=== PATIENT | female | born 1960 | race African-American/Black ===

== ENCOUNTER 2025-01-29 20:07 | Emergency (ER) | payer SELFPAY ==
[~2025-01-29] VITALS: Ht 162.6 cm; Wt 76.0 kg
[2025-01-29 20:11] VITALS: TEMP 37.2; O2SAT 100
[2025-01-29 20:55] VITALS: BP 120/60; PULSE 71; RESP 18
[2025-01-29] MEDS: KETOROLAC 15MG/ML VIAL IM ONE (20:55)
[2025-01-29 21:00] LABS: BASOPHILS % 0.4 % (0.0-2.0); EOSINOPHILS % 2.2 % (0.0-5.0); HEMATOCRIT. 32.7 % (36.0-48.0); HEMOGLOBIN. 10.9 g/dL (12.0-16.0); LYMPHOCYTES % 16.5 % (20.0-50.0); MEAN CORPUSCULAR HEMOGLOBIN 28.8 pg (28.0-32.0); MEAN CORPUSCULAR HGB CONC 33.5 g/dL (31.0-37.0); MEAN PLATELET VOLUME 8.5 fl (7.4-10.4); NEUTROPHILS % 73.9 % (40.0-76.0); PLATELET 237 x1000/uL (130-400); WHITE BLOOD COUNT 10.4 x1000/uL (4.5-11.0)
[2025-01-29 21:05] LABS: CHLORIDE 106 mEq/L (98-107); POTASSIUM 4.5 mEq/L (3.5-5.1); SODIUM 144 mEq/L (136-145)
[2025-01-29 21:06] LABS: CALCIUM 9.4 mg/dL (8.7-10.4); CARBON DIOXIDE 30 mEq/L (21-32)
[2025-01-29 21:11] LABS: GLUCOSE 111 mg/dL (70-105); UREA NITROGEN BLOOD 16 mg/dL (9-23)
[2025-01-29] MEDS ORDERED: SULF1TAB48 MT (23:58)
[2025-01-29] MEDS ORDERED: CEPH500C2 MT (23:58)
[2025-01-29] MEDS ORDERED: NAPR-1176 MT (23:59)
== END 2025-01-30 00:14 | disposition home or self-care (01) ==
LOC: ER 20:30
DX: L02.414 Cutaneous abscess of left upper limb (principal); Z79.1 Long term (current) use of non-steroidal anti-inflammatories (NSAID); Z79.899 Other long term (current) drug therapy
CPT/HCPCS: 99283; 80048; 85025; 36415; 96372; J1885